=== PATIENT | female | born 1995 | race Two or more races ===

== ENCOUNTER 2018-12-17 18:04 | Emergency (ER) | payer OTHER ==
[2018-12-17] MEDS ORDERED: PROCHLORPERAZINE EDISYLATE INJ 10 MG/2 ML VIAL IV ONE (19:22)
[2018-12-17] MEDS ORDERED: DIPHENHYDRAMINE HCL 50 MG/ML VIAL IV ONE (19:22)
[2018-12-17] MEDS ORDERED: NORMAL SALINE 1000 ML 1,000 ML IV ONE (19:22)
[2018-12-17] MEDS ORDERED: DEXAMETHASONE SOD PHOS INJ 10 MG/1 ML VIAL IV ONE (19:22)
--- NOTE | 2018-12-17 19:25 | ER Document Report ---
ED Medical Screen (RME) - General Chief Complaint: Headache Stated Complaint: HEADACHE Time Seen by Provider: 12/17/18 19:22 Mode of Arrival: Ambulatory Information source: Patient Notes: Patient presents complaining of headache pain to the bilateral amish area for the past week. Patient does report nausea and feeling lightheaded. Patient denies any fever vomiting or head injury. Patient denies any improvement with Tylenol. Patient was seen at the [facility] several days ago without any improvement of her symptoms. I have greeted and performed a rapid initial assessment of this patient. A comprehensive ED assessment and evaluation of the patient, analysis of test results and completion of the medical decision making process will be conducted by additional ED providers. TRAVEL OUTSIDE OF THE [place] IN LAST 30 DAYS: No - Related Data Allergies/Adverse Reactions: No Known Allergies Allergy (Unverified 12/17/18 18:06) Past Medical History - Social History Frequency of alcohol use: None Drug Abuse: None Renal/ Medical History: Denies: Hx Peritoneal Dialysis Past Surgical History: Reports: Hx Section Physical Exam - Vital signs Vitals: Temp Pulse Resp BP Pulse Ox 99.0 F 79 12 143/72 H 98 12/17/18 18:14 12/17/18 18:14 12/17/18 18:14 12/17/18 18:14 12/17/18 18:14 - General General appearance: Appears well, Alert In distress: None - Neurological Neuro grossly intact: Yes Cognition: Normal [place] Coma Scale Eye Opening: Spontaneous Sanjeev Coma Scale Verbal: Oriented Sanjeev Coma Scale Motor: Obeys Commands Goddard Coma Scale Total: 15 Course - Vital Signs Vital signs: Temp Pulse Resp BP Pulse Ox 99.0 F 79 12 143/72 H 98 12/17/18 18:14 12/17/18 18:14 12/17/18 18:14 12/17/18 18:14 12/17/18 18:14
[2018-12-17 20:04] LABS: ABSOLUTE EOSINOPHILS # (AUTO) 0.1 10^3/uL (0.0-0.6); ABSOLUTE LYMPHOCYTES (AUTO) 2.2 10^3/uL (0.5-4.7); ABSOLUTE MONOCYTES (AUTO) 0.5 10^3/uL (0.1-1.4); ABSOLUTE NEUT (AUTO) 4.1 10^3/uL (1.7-8.2); BASOPHILS % (AUTO) 0.7 % (0-2); EOSINOPHILS % (AUTO) 1.5 % (0-6); HEMATOCRIT 43.5 % (36.0-47.0); HEMOGLOBIN 14.8 g/dL (12.0-15.5); LYMPHOCYTES % (AUTO) 31.1 % (13-45); MEAN CORPUSCULAR HGB CONC 33.9 g/dL (32.0-36.0); MEAN CORPUSCULAR VOLUME 80 fl (80-97); MONOCYTES % (AUTO) 7.7 % (3-13); PLATELET COUNT 296 10^3/uL (150-450); RED BLOOD COUNT 5.46 10^6/uL (3.72-5.28); RED CELL DISTRIBUTION WIDTH 12.6 % (11.5-14.0); TOTAL CELLS COUNTED % (AUTO) 100 %
[2018-12-17 20:26] LABS: ANION GAP 10 (5-19); BLOOD UREA NITROGEN 9 mg/dL (7-20); CALCIUM 9.8 mg/dL (8.4-10.2); CARBON DIOXIDE 25 mmol/L (22-30); CHLORIDE 104 mmol/L (98-107); GLUCOSE 92 mg/dL (75-110); POTASSIUM 4.5 mmol/L (3.6-5.0); SODIUM 138.9 mmol/L (137-145)
--- NOTE | 2018-12-17 20:51 | ER Document Report ---
HPI - HPI Patient complains to provider of: VICTOR Time Seen by Provider: 12/17/18 19:22 Onset: Last week Onset/Duration: Persistent Quality of pain: Achy Pain Level: 4 Context: Patient presents complaining of frontal headache pain for the past week. Patient reports nausea and feeling lightheaded. Patient denies any fever or vomiting. Associated Symptoms: Headache, Nausea. denies: Nonproductive cough, Productive cough, Fever, Vomiting Exacerbated by: Denies Relieved by: Denies Similar symptoms previously: No Recently seen / treated by doctor: No - ROS ROS below otherwise negative: Yes Systems Reviewed and Negative: Yes All other systems reviewed and negative - CONSTITUTIONAL Constitutional: DENIES: Fever, Chills - EENT EENT: DENIES: Sore Throat, Congestion - NEURO Neurology: REPORTS: Headache, Dizzinesss / Vertigo - Lightheadedness. DENIES: Weakness, Vision blurred - RESPIRATORY Respiratory: DENIES: Trouble Breathing, Coughing - GASTROINTESTINAL Gastrointestinal: REPORTS: Nausea. DENIES: Abdominal Pain, Patient vomiting - REPRODUCTIVE Reproductive: DENIES: : - MUSCULOSKELETAL Musculoskeletal: DENIES: Back Pain, Neck Pain - DERM Skin Color: Normal, [place] Skin Problems: None Past Medical History - General Information source: Patient - Social History Smoking Status: Never Smoker Frequency of alcohol use: None Drug Abuse: None Lives with: Family Family History: Reviewed & Not Pertinent Patient has suicidal ideation: No Patient has homicidal ideation: No - Medical History Medical History: Negative - Is Renal/ Medical History: Denies: Hx Peritoneal Dialysis Past Surgical History: Reports: Hx Section Vertical Provider Document - CONSTITUTIONAL Agree With Documented VS: Yes Exam Limitations: No Limitations General Appearance: WD/WN, No Apparent Distress - INFECTION CONTROL TRAVEL OUTSIDE OF THE [place] IN LAST 30 DAYS: No - HEENT HEENT: Atraumatic, Normal ENT Exam, Normocephalic. negative: Pharyngeal Exudate, Pharyngeal Tenderness, Pharyngeal Erythema - NECK Neck: Normal Inspection, Supple. negative: Lymphadenopathy-Left, Lymphadenopathy-Right Notes: No meningismus - RESPIRATORY Respiratory: Breath Sounds Normal, No Respiratory Distress - CARDIOVASCULAR Cardiovascular: Regular Rate, Regular Rhythm, No Murmur - BACK Back: Normal Inspection - MUSCULOSKELETAL/EXTREMETIES Musculoskeletal/Extremeties: MAEW - NEURO Level of Consciousness: Awake, Alert, Appropriate Motor/Sensory: No Motor Deficit - DERM Integumentary: Warm, Dry, No Rash Course - Re-evaluation Re-evalutation: 12/17/18 21:01 patient reports headache pain is completely resolved at this time she is feeling much better. Patient states that she needs to go home and take care of her child. Patient is nontoxic in appearance. The patient presents with headache without signs of CURB SETTER HELPER bleed, stroke, infection, or other serious etiology. The patient is neurologically intact. Given the extremely low risk of these diagnoses further testing and evaluation for these possibilities does not appear to be indicated at this time. The patient has been instructed to return if the symptoms worsen or change in any way. - Vital Signs Vital signs: Temp Pulse Resp BP Pulse Ox 99.0 F 79 12 143/72 H 98 12/17/18 18:14 12/17/18 18:14 12/17/18 18:14 12/17/18 18:14 12/17/18 18:14 - Laboratory Result Diagrams: 12/17/18 19:50 12/17/18 19:50 Laboratory results interpreted by me: 12/17/18 12/17/18 19:50 19:50 RBC 5.46 H Creatinine 0.46 L 12/17/18 21:01 Labs- Entire Visit 12/17/18 12/17/18 12/17/18 19:50 19:50 19:50 WBC 7.0 RBC 5.46 H Hgb 14.8 Hct 43.5 MCV 80 MCH 27.0 MCHC 33.9 RDW 12.6 Plt Count 296 Seg Neutrophils % 59.0 Lymphocytes % 31.1 Monocytes % 7.7 Eosinophils % 1.5 Basophils % 0.7 Absolute Neutrophils 4.1 Absolute Lymphocytes 2.2 Absolute Monocytes 0.5 Absolute Eosinophils 0.1 Absolute Basophils 0.0 Sodium 138.9 Potassium 4.5 Chloride 104 Carbon Dioxide 25 Anion Gap 10 BUN 9 Creatinine 0.46 L Est GFR ( Amer) > 60 Est GFR (Non-Af Amer) > 60 Glucose 92 Calcium 9.8 Serum HCG, Qual NEGATIVE Discharge - Discharge Clinical Impression: Headache Qualifiers: Headache type: unspecified Headache chronicity pattern: unspecified pattern Intractability: not intractable Qualified Code(s): R51 - Headache Condition: Stable Disposition: HOME, SELF-CARE Instructions: Intravenous Compazine for Headaches ([facility]), Use of Diphenhydramin e, Headache ([facility]) Additional Instructions: Return immediately for any new or worsening symptoms Followup with your primary care provider, call tomorrow to make a followup ap pointment Referrals: [facility] [Provider Group] - Follow up as needed
[2018-12-18 02:48] VITALS: BP 124/78
== END 2018-12-17 21:30 | disposition home or self-care (01) ==
LOC: ER 18:04
DX: R51 Headache (principal); R11.0 Nausea; R42 Dizziness and giddiness
CPT/HCPCS: 99284; 96361; 96374; 96375; 36415; 84703; 85025; 80048; J1200; J0780; J7030; J1100

== ENCOUNTER 2020-06-11 16:44 | Outpatient (CLI) | payer OTHER ==
[2020-06-11] MEDS ORDERED: RINGERS SOLUTION,LACTATED 1,000 ML IV PRN (17:12)
[2020-06-11 17:50] LABS: APPEARANCE,URINE CLEAR; BILIRUBIN,URINE NEGATIVE (NEGATIVE); COLOR,URINE STRAW; GLUCOSE, URINE NEGATIVE (NEGATIVE); KETONES,URINE NEGATIVE (NEGATIVE); LEUKOCYTE ESTERASE,URINE NEGATIVE (NEGATIVE); NITRITE,URINE NEGATIVE (NEGATIVE); PROTEIN,URINE NEGATIVE (NEGATIVE); URINE SPECIFIC GRAVITY 1.003; UROBILINOGEN,URINE NEGATIVE mg/dL (<2.0)
[2020-06-11 18:03] LABS: BACTERIA (WET MOUNT) 4+ BACTERIA SEEN; EPITHELIALS (WET MOUNT) 4+ EPITHELIALS SEEN; RBCS (WET MOUNT) FEW RBCS SEEN; T.VAGINALIS (WET MOUNT) NO TRICHOMONAS SEEN; WBCS (WET MOUNT) 1+ WBCS SEEN; YEAST (WET MOUNT) NO YEAST SEEN
[2020-06-11 18:09] LABS: URINE AMPHETAMINES SCREEN NEGATIVE; URINE BARBITURATES SCREEN NEGATIVE; URINE BENZODIAZEPINES SCREEN NEGATIVE; URINE COCAINE SCREEN NEGATIVE; URINE MARIJUANA (THC) SCREEN NEGATIVE; URINE METHADONE SCREEN NEGATIVE; URINE PHENCYCLIDINE SCREEN NEGATIVE
[2020-06-11] MEDS ORDERED: MORPHINE SULFATE 10 MG/ML INJ IV ONE (18:42)
[2020-06-11] MEDS ORDERED: MORPHINE SULFATE 10 MG/ML INJ ONE (18:44)
--- NOTE | 2020-06-11 23:37 | Non Stress Test Report ---
Non Stress Test Datetime Report Generated by CPN: 06/11/2020 23:36 DEMOGRAPHIC Test Number: 1 EGA NST: 34.1 INDICATION Indication for Study (NST) Other: LC VITAL SIGNS Temperature - NST: 98.2 Pulse - NST: 80 RESP - NST: 18 NBPSYS NST: 121 MONITORING Monitor Explained: Monitor Explained; Test Explained; Patient Verbalized Understanding Time on Monitor: 06/11/2020 16:57 Time off Monitor: 06/11/2020 21:03 NST Duration: 246 NST INTERVENTIONS NST Interventions: IV Fluids BABY A: [id number] BABY A Movement : Present Contraction Frequency : 2-4 FHR Baseline : 145 Accelerations : 15X15 Decelerations : None Variability : Moderate 6-25bpm NST Review: Meets Criteria for Reactive NST NST Review and Verified By : Richard Mendez NST Results: Reactive NST REPORT Report Trigger: Send Report
== END 2020-06-11 23:19 | disposition home or self-care (01) ==
LOC: LC 16:44
PROVIDERS: ATTEND Obstetrics & Gynecology
DX: O36.8130 Decreased fetal movements, third trimester, not applicable or unspecified (principal); Z3A.34 34 weeks gestation of pregnancy
CPT/HCPCS: 87210; 81001; 87081; 80307; 59025; J2270

== ENCOUNTER 2020-06-23 20:03 | Outpatient (CLI) | payer OTHER ==
[2020-06-23 20:50] LABS: APPEARANCE,URINE CLEAR; BILIRUBIN,URINE NEGATIVE (NEGATIVE); COLOR,URINE STRAW; GLUCOSE, URINE NEGATIVE (NEGATIVE); KETONES,URINE NEGATIVE (NEGATIVE); LEUKOCYTE ESTERASE,URINE NEGATIVE (NEGATIVE); NITRITE,URINE NEGATIVE (NEGATIVE); PROTEIN,URINE NEGATIVE (NEGATIVE); URINE SPECIFIC GRAVITY 1.004; UROBILINOGEN,URINE NEGATIVE mg/dL (<2.0)
[2020-06-23 21:03] LABS: URINE AMPHETAMINES SCREEN NEGATIVE; URINE BARBITURATES SCREEN NEGATIVE; URINE BENZODIAZEPINES SCREEN NEGATIVE; URINE COCAINE SCREEN NEGATIVE; URINE MARIJUANA (THC) SCREEN NEGATIVE; URINE METHADONE SCREEN NEGATIVE; URINE PHENCYCLIDINE SCREEN NEGATIVE
== END 2020-06-23 21:19 | disposition home or self-care (01) ==
LOC: LC 20:03
PROVIDERS: ATTEND Obstetrics & Gynecology
DX: O47.03 False labor before 37 completed weeks of gestation, third trimester (principal); Z3A.35 35 weeks gestation of pregnancy
CPT/HCPCS: 80307; 81001

== ENCOUNTER → 2020-07-18 | Outpatient (CLI) | payer OTHER | LOC: OD 12:16 | PROVIDERS: ATTEND Obstetrics & Gynecology Gynecology | DX: Z34.90 Encounter for supervision of normal pregnancy, unspecified, unspecified trimester (principal); Z3A.00 Weeks of gestation of pregnancy not specified | CPT/HCPCS: 36415; 86850; 86900; 86901 ==

== ENCOUNTER 2020-07-19 05:03 | Inpatient (IN) | payer OTHER ==
[2020-07-13 09:08] LABS: ABSOLUTE EOSINOPHILS # (AUTO) 0.1 10^3/uL (0.0-0.6); ABSOLUTE LYMPHOCYTES (AUTO) 1.2 10^3/uL (0.5-4.7); ABSOLUTE MONOCYTES (AUTO) 0.4 10^3/uL (0.1-1.4); ABSOLUTE NEUT (AUTO) 2.8 10^3/uL (1.7-8.2); BASOPHILS % (AUTO) 0.5 % (0-2); EOSINOPHILS % (AUTO) 1.2 % (0-6); HEMATOCRIT 34.6 % (36.0-47.0); HEMOGLOBIN 11.9 g/dL (12.0-15.5); MEAN CORPUSCULAR HEMOGLOBIN 27.5 pg (27.0-33.4); MEAN CORPUSCULAR HGB CONC 34.4 g/dL (32.0-36.0); MEAN CORPUSCULAR VOLUME 80 fl (80-97); MONOCYTES % (AUTO) 9.4 % (3-13); PLATELET COUNT 164 10^3/uL (150-450); RED BLOOD COUNT 4.33 10^6/uL (3.72-5.28); RED CELL DISTRIBUTION WIDTH 14.6 % (11.5-14.0); SEGMENTED NEUTROPHILS % (AUTO) 61.9 % (42-78); TOTAL CELLS COUNTED % (AUTO) 100 %; WHITE BLOOD COUNT 4.6 10^3/uL (4.0-10.5)
[2020-07-13 09:19] LABS: APPEARANCE,URINE CLEAR; BILIRUBIN,URINE NEGATIVE (NEGATIVE); COLOR,URINE STRAW; GLUCOSE, URINE NEGATIVE (NEGATIVE); KETONES,URINE NEGATIVE (NEGATIVE); LEUKOCYTE ESTERASE,URINE NEGATIVE (NEGATIVE); NITRITE,URINE NEGATIVE (NEGATIVE); PROTEIN,URINE NEGATIVE (NEGATIVE); URINE SPECIFIC GRAVITY 1.003; UROBILINOGEN,URINE NEGATIVE mg/dL (<2.0)
[2020-07-13 09:36] LABS: URINE AMPHETAMINES SCREEN NEGATIVE; URINE BARBITURATES SCREEN NEGATIVE; URINE BENZODIAZEPINES SCREEN NEGATIVE; URINE COCAINE SCREEN NEGATIVE; URINE MARIJUANA (THC) SCREEN NEGATIVE; URINE METHADONE SCREEN NEGATIVE; URINE PHENCYCLIDINE SCREEN NEGATIVE
[2020-07-19] MEDS ORDERED: RINGERS SOLUTION,LACTATED 1,000 ML IV PRN ×2 (05:24→08:50)
[2020-07-19] MEDS ORDERED: RINGERS SOLUTION,LACTATED 1,000 ML IV ONE (05:30)
[2020-07-19] MEDS ORDERED: CEFAZOLIN 2 GM/D5W RTU 2 GM/50 ML RTUPB IV ONE (06:00)
--- NOTE | 2020-07-19 07:35 | Non Stress Test Report ---
Non Stress Test Datetime Report Generated by CPN: 07/19/2020 07:35 DEMOGRAPHIC EGA NST: 35.6 INDICATION Indication for Study (NST) Other: not in labor VITAL SIGNS Temperature - NST: 98.2 Pulse - NST: 89 RESP - NST: 18 NBPSYS NST: 122 NBPDIA NST: 70 MONITORING Monitor Explained: Monitor Explained; Test Explained; Patient Verbalized Understanding Time on Monitor: 06/23/2020 20:18 Time off Monitor: 06/23/2020 21:09 NST Duration: 51 NST INTERVENTIONS NST Interventions: None; PO Hydration Physician Notified NST: Dr. Yuen BABY A: [id number] BABY A Movement : Present Contraction Frequency : 3-8 FHR Baseline : 150 Accelerations : 15X15 Decelerations : None Variability : Moderate 6-25bpm NST Review: Meets Criteria for Reactive NST NST Review and Verified By : Kelechi Jon RN NST Results: Reactive NST REPORT Report Trigger: Send Report
[2020-07-19] MEDS ORDERED: PHENYLEPHRINE HCL INJ/PF 10 MG/1 ML SDV ONE (07:49)
[2020-07-19] MEDS ORDERED: EPHEDRINE SULFATE INJ 50 MG/1 ML AMPULE ONE (07:49)
[2020-07-19] MEDS ORDERED: FENTANYL CITRATE INJ/PF 100 MCG/2 ML AMPUL ONE (07:49)
[2020-07-19] MEDS ORDERED: OXYTOCIN 10 UNIT/ML VIAL ONE ×2 (07:49→10:26)
[2020-07-19] MEDS ORDERED: GLYCOPYRROLATE INJ 0.4 MG/2 ML VIAL ONE (07:49)
[2020-07-19] MEDS ORDERED: KETOROLAC TROMETHAMINE INJ/PF 30 MG/1 ML SDV ONE (07:49)
[2020-07-19] MEDS ORDERED: ONDANSETRON HCL INJ/PF 4 MG/2 ML SDV ONE (07:50)
[2020-07-19] MEDS ORDERED: OXYTOCIN/0.9 % SODIUM CHLORIDE 30 UNIT/500 ML RTUINJ ONE ×2 (07:50→10:45)
[2020-07-19] MEDS ORDERED: MIDAZOLAM 2 MG/2 ML INJ ONE (07:50)
[2020-07-19] MEDS ORDERED: ACETAMINOPHEN 1,000 MG/100 ML RTUPB IV ONE (07:50)
[2020-07-19] MEDS ORDERED: FENTANYL CITRATE INJ/PF 100 MCG/2 ML AMPUL IV PRN ×3 (08:50)
[2020-07-19] MEDS ORDERED: OXYTOCIN/0.9 % SODIUM CHLORIDE 30 UNIT/500 ML RTUINJ IV PRN (08:50)
[2020-07-19] MEDS ORDERED: MEASLES,MUMPS&RUBELLA VACC/PF 0.5 ML VIAL SUBCUT PRN (08:50)
[2020-07-19] MEDS ORDERED: PROMETHAZINE HCL INJ 25 MG/1 ML VIAL IV PRN ×3 (08:50)
[2020-07-19] MEDS ORDERED: OXYCODONE-ACETAMINOPHEN 5-325 MG TABLET PO PRN ×2 (08:50)
[2020-07-19] MEDS ORDERED: DIPH/PERTUSS(ACELL)/TETANUS VAC/PF 0.5 ML SYR (>=10YO) IM PRN (08:50)
[2020-07-19] MEDS ORDERED: MORPHINE SULFATE 10 MG/ML INJ IM PRN (08:50)
[2020-07-19] MEDS ORDERED: ACETAMINOPHEN 1,000 MG/100 ML RTUPB IV PRN (08:50)
[2020-07-19] MEDS ORDERED: DIPHENHYDRAMINE HCL 50 MG/ML VIAL IV PRN (08:50)
[2020-07-19] MEDS ORDERED: MORPHINE SULFATE 10 MG/ML INJ IV PRN (08:50)
[2020-07-19] MEDS ORDERED: ACETAMINOPHEN 325 MG TABLET PO PRN (08:50)
[2020-07-19] MEDS ORDERED: MEPERIDINE HCL/PF INJ 25 MG/1 ML DISP.SYRIN IV PRN (08:50)
[2020-07-19] MEDS ORDERED: SIMETHICONE 80 MG TAB.CHEW PO PRN (08:50)
--- NOTE | 2020-07-19 08:53 | PDOC DELIVERY SUMMARY ---
Delivery Summary - Maternal Hx : II Hx # Term Pregnancies: 0 Hx # Pregnancies: 1 Hx Total # of Abortions (Sponateous & Elective): 0 BORIS: 07/22/19 Gestational Age: 39wks 4d Risk Factors: Previous Ruptured Membranes: AROM Fluids: Clear - Delivery Labor: Not In Labor Presentation: Vertex Heart Rate Monitoring: Done Pre-Operatively, Externally Uterine Contraction Monitoring: External Support Person Present: No : Scheduled Placenta: Within Normal Limits - Medications Type of Anesthesia:: Spinal
--- NOTE | 2020-07-19 08:55 | Operative Report ---
Operative Report DATE OF SURGERY: 07/19/20 PREOPERATIVE DIAGNOSIS: IUP at term prior section POSTOPERATIVE DIAGNOSIS: Same OPERATION: Repeat low transverse liberal viable male infant SURGEON: JOHNSON ENGEL ANESTHESIA: Spinal TISSUE REMOVED OR ALTERED: Placenta COMPLICATIONS: None ESTIMATED BLOOD LOSS: Approximately 1000 cc PROCEDURE: The patient was taken to the operating room where spinal anesthesia was obtained and found to be adequate. She was then prepped and draped in the normal sterile fashion and placed in the dorsal supine position with a leftward tilt. A Pfannenstiel skin incision was then made and carried through to the underlying layers of the fascia with the scalpel. The fascia was incised in the midline and the incision extended laterally with the Correa scissors. The superior aspect of the fascial incision was then grasped with [place] clamps elevated and the underlying rectus muscles dissected off bluntly. Attention was then turned to the inferior aspect of the fascial incision which in a similar fashion was grasped, tented up with Linda clamps, and the rectus muscles dissected off bluntly. The rectus muscles were then in the midline and the peritoneum at the amount identified and entered bluntly. The peritoneal incision was then extended superiorly and inferiorly with good visualization of the bladder. [The bladder blade was inserted and the vesicouterine peritoneum identified grasped with Cambodian pickups and entered sharply with the Metzenbaum scissors. His incision was then extended laterally with the Metzenbaum scissors and a bladder flap created digitally. The bladder blade was then reinserted and the lower uterine segment incised in a transverse fashion with the scalpel. The uterine incision was then extended bluntly. The bladder blade was removed and the 's head was delivered from cephalic presentation atraumatically. The nose and mouth were suctioned and the cord doubly clamped and cut. And the was handed off to waiting pediatricians. The placenta was then delivered manully and the uterus exteriorized and cleared of all clots and debris. The uterine incision was then repaired with 1-0 Vicryl in a running locked fashion. A second layer of the same suture was used to obtain hemostasis via imbrication of the initial layer. The uterus was returned to the patient's abdomen. The gutters were cleared of all clots and debris. All operative sites were noted to be hemostatic. The fascia was reapproximated with 0 Vicryl in a running fashion from each lateral edge to the midline. The patient tolerated the procedure well. Sponge lap needle and instrument counts are correct -2. 2 g of Ancef were given prior to skin incision. The patient was taken to the recovery area awake and in stable condition.
[2020-07-19] MEDS ORDERED: NIFEDIPINE 10 MG CAPSULE ONE (11:01)
--- NOTE | 2020-07-19 11:35 | Delivery Summary ---
Del Sum A-C Datetime Report Generated by CPN: 07/19/2020 11:35 DELIVERY PERSONNEL DELIVERY PERSONNEL: [id number] Delivery Doctor:: Jose Francisco MD EDUCATION SPEC:: Al Palacios EDUCATION SPEC Labor and Delivery Nurse:: Tiki Mendez RNchildren's choir director Nurse:: Vinita Valdovinos RN Neonatal Nurse Practitioner:: JOSH Becerril Nursery Nurse:: Shakila Lake RN Nursery Nurse:: Student Observers:: Yin Bassett Medical Student Textile Scrap Salvager/CRANE CREW SUPERVISOR: Vinita Fang, CLINIC LPN Textile Scrap Salvager/CRANE CREW SUPERVISOR: Shalonda Peña ST MATERNAL INFORMATION Delivery Anesthesia: Spinal Medications After Delivery: Pitocin 30 Units in 500ml NS/D5W; Pitocin Drip 20 Units/1000ml NSS Meds After Delivery Comment: Pitocin 20 Units in 1000 LR per EDUCATION SPEC, Pitocin 30units/500mL LR started in PACU Delivery QBL: 245 Maternal Complications: None LABOR SUMMARY EDC: 07/22/2020 00:00 No. Babies in Womb: 1 Attempted: No Labor Anesthesia: Intrathecal LABOR INFORMATION Reason for Induction: Not Applicable Oxytocin: N/A Group B Beta Strep: 1 NO GROUP B STREPTOCOCCUS RECOVERED Antibiotics # of Doses: 1 Antibiotics Time of Last Dose: 07/19/2020 08:20 Name of Antibiotic Given: Ancef 2 gm Steroids Given: None Reason Steroids Not Administered: Not Applicable MEMBRANES Membranes Rupture Method: Artificial Rupture of Membranes: 07/19/2020 08:25 Length of Rupture (hr): 0.07 Amniotic Fluid Color: Clear Amniotic Fluid Amount: Large Amniotic Fluid Odor: None STAGES OF LABOR Stage 3 hr: 0 Stage 3 min: 1 VAGINAL DELIVERY Episiotomy: None Laceration #1: None Laceration Extension #1: N/A Laceration Repair: Not Applicable Sponge Count Correct: N/A Sharps Count Correct: N/A CSECTION DELIVERY Primary Indication: Repeat Elective Secondary Indication: N/A CSection Urgency: Scheduled CSection Incidence: Repeat Labor: No Labor Elective: Elective CSection Incision: Lower Uterine Transverse BABY A INFORMATION Infant Delivery Date/Time: 07/19/2020 08:29 Method of Delivery: Nurse Controlled Delivery: No Born in Route : No : N/A Forceps: N/A Vacuum Extraction: N/A Shoulder Dystocia : No PRESENTATION/POSITION BABY A Presentation: Cephalic Cephalic Presentation: Vertex Breech Presentation: N/A PLACENTA INFORMATION BABY A Placenta Delivery Time : 07/19/2020 08:30 Placenta Method of Delivery: Manual Removal Placenta Status: Delivered SCORES BABY A Heart Rate 1 min: >100 bpm Resp Effort 1 min: Good Cry Reflex Irritability 1 min: Cough or Sneeze or Pulls Away Muscle Tone 1 min: Active Motion Color 1 min: Blue/Pale Resuscitation Effort 1 min: Tactile Stimulation SCORE 1 MIN: 8 Heart Rate 5 min: >100 bpm Resp Effort 5 min: Good Cry Reflex Irritability 5 min: Cough or Sneeze or Pulls Away Muscle Tone 5 min: Active Motion Color 5 min: Body [place], Extremities Blue Resuscitation Effort 5 min: Tactile Stimulation SCORE 5 MIN: 9 INFORMATION BABY A Gestational Age at Delivery: 39.0 Gestational Status: Full Term- 39- 40.6 Weeks Infant Outcome : Liveborn Infant Condition : Stable Infant Sex: Male IDENTIFICATION BABY A Verification Date/Time: 07/19/2020 09:43 ID Band Number: [id number] Mother's Name Verified: Yes Infant RN Verifying : E Valdovinos Additional Verifying Personnel: A Lake WEIGHT/LENGTH BABY A Infant Birthweight (gm): 3590 Infant Weight (lb): 7 Weight (oz): 15 CORD INFORMATION BABY A No. Cord Vessels: 3 Nuchal Cord : N/A Cord Blood Taken: Yes-For Eval (Mom's Blood Type - or O+) Suction: None ASSESSMENT BABY A Skin to Skin: Yes
--- NOTE | 2020-07-19 11:36 | Birth Certificate Data ---
Cert Data Datetime Report Generated by CPN: 07/19/2020 11:35 CERTIFICATE DATA Delivery Provider: Jose Francisco MD (07/19/2020 08:01:Tiki Mendez RN) 47a. Care: Yes (06/11/2020 16:46:Rita Baker RN) 47b. Date of First Visit: 01/11/2020 00:00 (06/11/2020 16:46:Rita Baker RN) 48a. Number of Prev Live Births: 1 (06/11/2020 16:46:Rita Baker RN) 48b. Now Livin (06/11/2020 16:46:Rita Baker RN) 48c. Live Births Now : 0 (06/11/2020 16:46:QS system process) 48e. Losses: 0 (06/11/2020 16:46:Rita Baker RN) RISK FACTORS IN THIS 49a. Diabetes: No (06/11/2020 16:46:Rita Baker RN) 49b. Hypertension: No (06/11/2020 16:46:Rita Baker RN) 49c. Previous Births: 1 (06/11/2020 16:46:Rita Baker RN) 49d. Stillborns: No (06/11/2020 16:46:Rita Baker RN) 49d. IUGR: No (06/11/2020 16:46:Rita Baker RN) 49e. Infertility Treatment: No (06/11/2020 16:46:Rita Baker RN) 49f. Previous Cesareans: 1 (06/11/2020 16:46:Rita Baker RN) Mother's Height 50b. Height Inches: 60 (06/11/2020 16:56:QS system process) Mother's Weight 51a. Pre- Weight (lbs): 152 (06/11/2020 16:46:Rita Baker RN) 51b. Weight at Delivery (lbs): 180 (07/19/2020 09:49:QS system process) Infections Present/Treated 53a. Gonorrhea: No (06/11/2020 16:46:Rita Baker RN) 53b. Syphilis: No (06/11/2020 16:46:Rita Baker RN) 53c. Chlamydia: No (06/11/2020 16:46:Rita Baker RN) 53d. Hepatitis B: No (06/11/2020 16:46:Rita Baker RN) Results this Hospital Visit: Negative (06/11/2020 16:46:Rita Baker RN) 53e. Hepatitis C: Negative (06/11/2020 16:46:Rita Baker RN) 53h. Mother Tested for HBsAG: Yes (06/11/2020 16:46:Rita Baker RN) 53i. Date Tested: 01/11/2020 00:00 (06/11/2020 16:46:Rita Baker RN) 53j. Test Result: Negative (06/11/2020 16:46:Rita Baker, RN) Obstetric Procedures 54a, b, c. Obstetric Procedures: Ultrasound (06/11/2020 16:46:Rita Baker, RN) Cigarette Smoking Cigarette Smoking: Never Smoker. [id number] (06/11/2020 16:46:Rita Baker, RN) Onset of Labor 56a. PROM >12 Hrs: 0.07 (06/11/2020 16:46:QS system process) 57a. Induction of Labor: N/A (06/11/2020 16:46:Vinita Valdovinos RN) 57c. Non-Vertex Presentation A: Vertex (06/11/2020 16:46:Vinita Valdovinos RN) 57d. Steroids - Lung Mat: None (06/11/2020 16:46:Vinita Valdovinos RN) 57d. Steroids - Lung Mat: Not Applicable (06/11/2020 16:46:Vinita Valdovinos RN) 57e. Antibiotics During Labor: 07/19/2020 08:20 (06/11/2020 16:46:Vinita Valdovinos RN) 57f. Mat Ch[place] or Temp >100.4: 98.0 (06/11/2020 16:46:Vinita Valdovinos RN) 57g. Moderate/Heavy Meconium: Clear (06/11/2020 16:46:Vinita Valdovinos RN) 57h. Intolerance of Labor: Repeat Elective (06/11/2020 16:46:Vinita Valdovinos RN) : N/A (06/11/2020 16:46:Vinita Valdovinos RN) 57i. Epidural/Spinal Anesthesia: Intrathecal (06/11/2020 16:46:Vinita Valdovinos RN) Method of Delivery 58a. Forceps - Unsuccessful A: N/A (06/11/2020 16:46:Vinita Bonifacio ) 58b. Vacuum - Unsuccessful A: N/A (06/11/2020 16:46:Vinita Valdovinos, RN) 58c. Presentation at 58c. Presentation at - A : Vertex (06/11/2020 16:46:Vinitarosibel Valdovinos ) 58c. Presentation at - A : N/A (06/11/2020 16:46:Vinita Bonifacio ) 58c. Presentation at - A : Cephalic (06/11/2020 16:46:Vinitarosibel Valdovinos ) Final Route and Method of Del 58d. Baby A Route/Delivery: (06/11/2020 16:46:iVnita Valdovinos RN) 58e. Trial of Labor Attempted: No (06/11/2020 16:46:Vinita Valdovinos RN) 58e. Trial of Labor Attempted A: N/A (06/11/2020 16:46:Vinita Valdovinos RN) Maternal Morbidity 59b. 3rd or 4th Degree Lacs: None (06/11/2020 16:46:Vinita Valdovinos RN) Birthweight Baby A: 3590 (06/11/2020 16:46:Vinita Valdovinos RN) 60a. Pounds : 7 (06/11/2020 16:46:QS system process) 60b. Ounces: 15 (06/11/2020 16:46:QS system process) 61. GA at Delivery Baby A: 39.0 (06/11/2020 16:46:Vinita Valdovinos RN) : Full Term- 39- 40.6 Weeks (06/11/2020 16:46:QS system process) 62a. 5 Minute Baby A: 9 (06/11/2020 16:46:QS system process)
--- NOTE | 2020-07-19 11:36 | Warning Signs in Babies ---
VOD Warning Signs Datetime Report Generated by [facility]: 07/19/2020 11:35 VOD#[id number] -Warning Signs in Babies: Viewed with Parent(s)/Family (06/11/2020 16:46:Vinita Valdovinos RN)
[2020-07-19] MEDS ORDERED: NIFEDIPINE 10 MG CAPSULE PO ONE (12:30)
[2020-07-19] MEDS: DOCUSATE SODIUM 100 MG CAPSULE PO SCH ×2 (12:36→17:21)
[2020-07-19] MEDS: PRENATAL VITAMIN W DHA CAPSULE PO SCH (12:36)
[2020-07-19] MEDS: KETOROLAC TROMETHAMINE INJ/PF 30 MG/1 ML SDV IV SCH ×2 (15:21→21:16)
[2020-07-19] MEDS: OXYCODONE-ACETAMINOPHEN 5-325 MG TABLET PO PRN (20:12)
[2020-07-20] MEDS: KETOROLAC TROMETHAMINE INJ/PF 30 MG/1 ML SDV IV SCH (05:39)
[2020-07-20] MEDS: OXYCODONE-ACETAMINOPHEN 5-325 MG TABLET PO PRN ×2 (05:40→14:23)
[2020-07-20 08:15] LABS: HEMOGLOBIN 11.1 g/dL (12.0-15.5); MEAN CORPUSCULAR HEMOGLOBIN 27.6 pg (27.0-33.4); MEAN CORPUSCULAR HGB CONC 33.7 g/dL (32.0-36.0); MEAN CORPUSCULAR VOLUME 82 fl (80-97); PLATELET COUNT 155 10^3/uL (150-450); RED BLOOD COUNT 4.02 10^6/uL (3.72-5.28); WHITE BLOOD COUNT 7.5 10^3/uL (4.0-10.5)
[2020-07-20] MEDS: PRENATAL VITAMIN W DHA CAPSULE PO SCH (09:57)
[2020-07-20] MEDS: DOCUSATE SODIUM 100 MG CAPSULE PO SCH ×2 (09:57→17:31)
--- NOTE | 2020-07-20 12:23 | PDOC PROGRESS REPORT ---
Subjective-OB Progress Note for:: 07/20/20 Subjective: 24yo s/p repeat ppd1. Voiding and ambulating without difficulty, reports pain well controlled with medication. Denies any concerns. Physical Exam (OB) Vital Signs: Temp Pulse Resp BP Pulse Ox 98.3 F 88 24 H 134/88 H 98 07/20/20 11:15 07/20/20 11:15 07/20/20 11:15 07/20/20 11:15 07/20/20 11:15 Intake & Output 07/19/20 07/20/20 07/21/20 06:59 06:59 06:59 Intake Total 2700 Output Total 3850 Balance -1150 Weight 82.1 kg - General General Appearance: Appears well - PIH/Pre-Eclampsia DTR's: 2 + Clonus: Negative Headache: Absent Epigastric Pain: No Visual Changes: No PIH/Pre-Eclampsia Note: mild range bps, monique continue to monitor - Dressing Removed: No Incision: Dressing Closure Type: pressure d - Maternal Morbidity 59. Maternal Morbidity (serious complications experinced by the mother associated with labor and delivery: None of the above - Lochia Lochia Amount: Scant < 10 ml Lochia Color: Rubra/Red - Abdomen Description: Soft, Round Hernia Present: No Fundal Description: Firm, Midline Fundal Height: u/u - u/2 - Respiratory Respiratory Status: No respiratory distress - Extremities Upper extremity: Normal inspection Lower extremities: Normal inspection - Neurological Cognition: Normal Orientation: AAOx4 - Psychological Associated symptoms: Normal affect, Normal mood Objective-Diagnostic Laboratory: 07/20/20 07:35 07/20/20 07:35 WBC 7.5 RBC 4.02 Hgb 11.1 L Hct 33.0 L MCV 82 MCH 27.6 MCHC 33.7 RDW 15.0 H Plt Count 155 Assessment and Plan(PN) - Assessment and Plan (1) S/P repeat low transverse Is this a current diagnosis for this admission?: Yes Plan: continue to monitor bp, access need for anti HTN as needed. Routine pp care - Time Spent with Patient Time with patient: Less than 15 minutes Medications reviewed and adjusted accordingly: Yes - Disposition Anticipated Discharge Disposition: Home, Self Care Anticipated Discharge Timeframe: within 24 hours
[2020-07-20] MEDS: IBUPROFEN 800 MG TABLET PO SCH ×2 (13:05→17:29)
[2020-07-21] MEDS: IBUPROFEN 800 MG TABLET PO SCH ×3 (00:43→13:57)
[2020-07-21] MEDS: PRENATAL VITAMIN W DHA CAPSULE PO SCH (09:33)
[2020-07-21] MEDS: DOCUSATE SODIUM 100 MG CAPSULE PO SCH (09:33)
--- NOTE | 2020-07-21 10:10 | PDOC PROGRESS REPORT ---
Subjective-OB Progress Note for:: 07/21/20 Subjective: Doing well, ready to go home, pain under control, + gas, BM x 2, eating and drinking well, ambulating Physical Exam (OB) Vital Signs: Temp Pulse Resp BP Pulse Ox 98.1 F 72 17 130/85 H 100 07/21/20 08:08 07/21/20 07:30 07/21/20 07:30 07/21/20 07:30 07/21/20 07:30 Intake & Output 07/20/20 07/21/20 07/22/20 06:59 06:59 06:59 Intake Total 2700 780 Output Total 3850 Balance -1150 780 Weight 82.1 kg - PIH/Pre-Eclampsia DTR's: 1 + Clonus: Positive Headache: Absent Epigastric Pain: No Visual Changes: No - Dressing Removed: No Incision: Well Approximated Closure Type: Opsite - Maternal Morbidity 59. Maternal Morbidity (serious complications experinced by the mother associated with labor and delivery: None of the above - Lochia Lochia Amount: Scant < 10 ml Lochia Color: Rubra/Red - Abdomen Description: Soft Hernia Present: No Fundal Description: Firm, Midline Fundal Height: u/u - u/2 Objective-Diagnostic Laboratory: 07/20/20 07:35 Assessment and Plan(PN) - Assessment and Plan (1) S/P repeat low transverse Is this a current diagnosis for this admission?: Yes - Time Spent with Patient Time with patient: Less than 15 minutes Medications reviewed and adjusted accordingly: Yes - Disposition Anticipated Discharge Disposition: Home, Self Care Anticipated Discharge Timeframe: within 24 hours
--- NOTE | 2020-07-21 10:16 | PDOC DISCHARGE SUMMARY ---
Impression - Admit/DC Date/PCP Admission Date/Primary Care Provider: 07/19/20 05:03 JOHNSON ENGEL MD Discharge Date: 07/21/20 - Discharge Diagnosis (1) S/P repeat low transverse Is this a current diagnosis for this admission?: Yes - Additional Information Resuscitation Status: Full Code Discharge Diet: As Tolerated, Regular Discharge Activity: Activity As Tolerated, Balance Activity w/Rest, No Lifting Over 10 Pounds, No Lifting/Push/Pulling, Pelvic Rest, No tub bath Referrals: JOHNSON ENGEL MD [Primary Care Provider] - Prescriptions: Oxycodone HCl/Acetaminophen [Percocet 5-325 mg Tablet] 1 tab PO Q4HP PRN #30 tablet PRN Reason: Ibuprofen [Motrin 800 mg Tablet] 800 mg PO Q6 #30 tablet Home Medications: No122/Iron/Folic Acid [ Multi Tablet] 1 tab PO DAILY 06/11/20 Cetirizine HCl [Zyrtec] 1 tab PO DAILY 06/23/20 Ibuprofen [Motrin 800 mg Tablet] 800 mg PO Q6 #30 tablet 07/21/20 Oxycodone HCl/Acetaminophen [Percocet 5-325 mg Tablet] 1 tab PO Q4HP PRN #30 tablet 07/21/20 HPI Gestational Age: 37 Reason(s) for Admission: Ceasarean Section-Repeat Procedures: NST, Ultrasound Intrapartum Procedure(s): : Low Cervical, Transverse Hospital Course Hospital Course: routine post op 59. Maternal Morbidity (serious complications experinced by the mother associated with labor and delivery: None of the above Results Laboratory Results: WBC 7.5 10^3/uL (4.0-10.5) 07/20/20 07:35 RBC 4.02 10^6/uL (3.72-5.28) 07/20/20 07:35 Hgb 11.1 g/dL (12.0-15.5) L 07/20/20 07:35 Hct 33.0 % (36.0-47.0) L 07/20/20 07:35 MCV 82 fl (80-97) 07/20/20 07:35 MCH 27.6 pg (27.0-33.4) 07/20/20 07:35 MCHC 33.7 g/dL (32.0-36.0) 07/20/20 07:35 RDW 15.0 % (11.5-14.0) H 07/20/20 07:35 Plt Count 155 10^3/uL (150-450) 07/20/20 07:35 Lymph % (Auto) 27.0 % (13-45) 07/13/20 08:07 [place] % (Auto) 9.4 % (3-13) 07/13/20 08:07 Eos % (Auto) 1.2 % (0-6) 07/13/20 08:07 Baso % (Auto) 0.5 % (0-2) 07/13/20 08:07 Absolute Neuts (auto) 2.8 10^3/uL (1.7-8.2) 07/13/20 08:07 Absolute Lymphs (auto) 1.2 10^3/uL (0.5-4.7) 07/13/20 08:07 Absolute Monos (auto) 0.4 10^3/uL (0.1-1.4) 07/13/20 08:07 Absolute Eos (auto) 0.1 10^3/uL (0.0-0.6) 07/13/20 08:07 Absolute Basos (auto) 0.0 10^3/uL (0.0-0.2) 07/13/20 08:07 Seg Neutrophils % 61.9 % (42-78) 07/13/20 08:07 Urine Color STRAW 07/13/20 08:10 Urine Appearance CLEAR 07/13/20 08:10 Urine pH 8.0 (5.0-9.0) 07/13/20 08:10 Ur Specific [place] 1.003 07/13/20 08:10 Urine Protein NEGATIVE mg/dL (NEGATIVE) 07/13/20 08:10 Urine Glucose (UA) NEGATIVE mg/dL (NEGATIVE) 07/13/20 08:10 Urine Ketones NEGATIVE mg/dL (NEGATIVE) 07/13/20 08:10 Urine Blood NEGATIVE (NEGATIVE) 07/13/20 08:10 Urine Nitrite NEGATIVE (NEGATIVE) 07/13/20 08:10 Urine Bilirubin NEGATIVE (NEGATIVE) 07/13/20 08:10 Urine Urobilinogen NEGATIVE mg/dL (<2.0) 07/13/20 08:10 Ur Leukocyte Esterase NEGATIVE (NEGATIVE) 07/13/20 08:10 Urine WBC (Auto) 1 /HPF 07/13/20 08:10 Urine RBC (Auto) 0 /HPF 07/13/20 08:10 U Hyaline Cast (Auto) 1 /LPF 07/13/20 08:10 Urine Bacteria (Auto) 2+ /HPF 07/13/20 08:10 Squamous Epi Cells Auto 2 /HPF 07/13/20 08:10 Urine Mucus (Auto) RARE /LPF 07/13/20 08:10 Urine Ascorbic Acid NEGATIVE (NEGATIVE) 07/13/20 08:10 Urine Opiates Screen NEGATIVE 07/13/20 08:10 Urine Methadone Screen NEGATIVE 07/13/20 08:10 Ur Barbiturates Screen NEGATIVE 07/13/20 08:10 Ur Phencyclidine Scrn NEGATIVE 07/13/20 08:10 Ur Amphetamines Screen NEGATIVE 07/13/20 08:10 U Benzodiazepines Scrn NEGATIVE 07/13/20 08:10 Urine Cocaine Screen NEGATIVE 07/13/20 08:10 U Marijuana (THC) Screen NEGATIVE 07/13/20 08:10 COVID-19 Source See comment 07/13/20 08:01 COVID-19 ([place]) Not Detected (Not Detect) 07/13/20 08:01 Plan Health Concerns: pain control Plan of Treatment: dc home, rev S&S to report, RTC 1 week Goals: no complications Time Spent: Less than 30 Minutes
[2020-07-21 10:59] VITALS: BP 121/80
== END 2020-07-21 14:41 | disposition home or self-care (01) | DRG 788 ==
LOC: 2S 05:03
PROVIDERS: ADMIT Obstetrics & Gynecology Gynecology; ATTEND Obstetrics & Gynecology Gynecology
PROC: 10D00Z1 Extraction of Products of Conception, Low, Open Approach (ICD-10-PCS; principal; 2020-07-19)
DX: O34.211 Maternal care for low transverse scar from previous cesarean delivery (principal); O40.3XX0 Polyhydramnios, third trimester, not applicable or unspecified; N85.8 Other specified noninflammatory disorders of uterus; Z3A.39 39 weeks gestation of pregnancy; Z37.0 Single live birth
CPT/HCPCS: 1961; 36415; 80307; 81001; 85025; 85027; 87635; 94760; 94799; C9803; J0131; J1885; J2250; J2370; J2405; J2590; J3010; J3490; J7120